=== PATIENT | male | born 1990 | race Caucasian/White ===

== ENCOUNTER 2021-08-06 20:10 | Emergency (ER) | payer BC ==
[~2021-08-06] VITALS: Ht 172.7 cm; Wt 136.1 kg
== END 2021-08-06 22:16 | disposition home or self-care (01) ==
LOC: ER 20:10
DX: B34.9 Viral infection, unspecified (principal); F41.9 Anxiety disorder, unspecified
CPT/HCPCS: 99283

== ENCOUNTER 2021-08-07 18:16 | Emergency (ER) | payer BC ==
[~2021-08-07] VITALS: Ht 172.7 cm; Wt 136.1 kg
[2021-08-07 18:55] LABS: BASOPHILS ABSOLUTE AUTO 0.07 K/mm3 (0.00-0.23); BASOPHILS PERCENT AUTO 1 % (0-2); EOSINOPHILS ABSOLUTE AUTO 0.01 K/mm3 (0.00-0.68); EOSINOPHILS PERCENT AUTO 0 % (0-6); Hematocrit 45.5 % (37.0-53.0); Hemoglobin 15.6 g/dL (13.5-17.5); IMMATURE GRAN ABSOLUTE AUTO 0.04 K/mm3 (0.00-0.10); IMMATURE GRAN PERCENT AUTO 0 % (0-1); LYMPHOCYTES ABSOLUTE AUTO 4.05 K/mm3 (0.84-5.20); LYMPHOCYTES PERCENT AUTO 32 % (21-46); MONOCYTES ABSOLUTE AUTO 0.74 K/mm3 (0.16-1.47); MONOCYTES PERCENT AUTO 6 % (4-13); Mean Corpuscular HGB 30.4 pg (26.0-34.0); Mean Corpuscular HGB Conc 34.3 g/dL (31.5-36.5); Mean Corpuscular Volume 89 fL (80-100); Mean Platelet Volume 10.4 fL (9.1-12.4); NEUTROPHILS ABSOLUTE AUTO 7.64 K/mm3 (1.96-9.15); NEUTROPHILS PERCENT AUTO 61 % (41-73); Platelet Count 315 K/mm3 (150-400); RDW Coefficient Variation 12.2 % (11.7-14.2); RDW Standard Deviation 39.8 fL (35.1-46.3); Red Blood Cell Count 5.13 M/mm3 (4.30-5.90); White Blood Cell Count 12.55 K/mm3 (4.00-11.30)
[2021-08-07 19:26] LABS: Alanine Aminotransfer (ALT/SGP 93 U/L (12-78); Albumin/Globulin Ratio 1.1 (0.8-1.8); Alk Phos 70 U/L (50-136); Anion Gap 8 mmol/L (6-16); Aspartate Aminotrans (AST/SGOT 90 U/L (12-37); Bilirubin, Total 0.5 mg/dL (0.1-1.0); Blood Urea Nitrogen 16 mg/dL (8-24); Bun/Creatinine Ratio 22.5 (12.0-20.0); CO2, Blood 23 mmol/L (21-32); Calcium, Blood 9.2 mg/dL (8.5-10.1); Chloride, Blood 106 mmol/L (98-108); Creatinine, Blood 0.71 mg/dL (0.60-1.20); Globulin, Blood 3.8 g/dL (2.2-4.0); Glomerular Filtration Rate >60 (60-); Glucose, Blood 114 mg/dL (70-99); Sodium, Blood 137 mmol/L (136-145); Total Protein, Blood 7.8 g/dL (6.4-8.2)
[2021-08-07 20:14] LABS: Source, Urine Clean Catch
[2021-08-07 20:17] LABS: Bilirubin, Urine Neg (Neg); Blood, Urine Neg (Neg); Glucose Qualitative, Urine Neg (Neg); Ketones, Urine 2+ (Neg); Leukocyte Esterase, Urine 2+ (Neg); Nitrite, Urine Neg (Neg); Protein, Urine Neg (Neg); Urobilinogen, Urine NORM (Normal)
[2021-08-07 20:20] LABS: Appearance, Urine Clear (Clear); Color, Urine Yellow (P-Yellow)
[2021-08-07 20:39] LABS: Red Blood Cells, Urine Not Seen /hpf (0-2)
[2021-08-07 20:40] LABS: Amorphous Mod (0-Heavy); Bacteria Few /hpf; Squamous Epithelial Cells Not Seen /hpf (Few)
[2021-08-07 23:17] LABS: U Amphetamine Screen Not Detected; U Barbituate Screen Not Detected; U Benzodiazapine Screen Not Detected; U Buprenorphine Screen Not Detected; U Cannabinoids Screen Not Detected; U Cocaine Screen Not Detected; U Methadone Screen Not Detected; U Methamphetamine Screen Not Detected; U Opiates Screen Not Detected; U Oxycodone Screen Not Detected; U Phencyclidine Screen Not Detected; U Propoxyphene Screen Not Detected
[2021-08-07 23:17] LABS: Ethanol (Alcohol), Blood, Med <3 mg/dL
== END 2021-08-07 23:10 | disposition home or self-care (01) ==
LOC: ER 18:16
PROVIDERS: Physician Assistant; Student in an Organized Health Care Education/Training Program
DX: R40.4 Transient alteration of awareness (principal); R00.0 Tachycardia, unspecified; Z87.891 Personal history of nicotine dependence
CPT/HCPCS: 80053; 81001; 85025; 87086; 99283; G0480

== ENCOUNTER → 2021-10-20 | Outpatient (CLI) | payer BC | END | disposition home or self-care (01) | LOC: LAB 09:00 → LAB SHORT 09:00 | DX: R30.0 Dysuria (principal) | CPT/HCPCS: 87077; 87086; 87186 ==

== ENCOUNTER → 2022-03-28 | Outpatient (CLI) | payer BC | END | disposition home or self-care (01) | LOC: LAB SHORT 15:23 → LAB 15:23 | DX: R30.0 Dysuria (principal) | CPT/HCPCS: 87077; 87086; 87186 ==

== ENCOUNTER → 2022-10-18 | Outpatient (CLI) | payer BC ==
[2022-10-18 11:45] LABS: BASOPHILS ABSOLUTE AUTO 0.06 K/mm3 (0.00-0.23); BASOPHILS PERCENT AUTO 1 % (0-2); EOSINOPHILS PERCENT AUTO 0 % (0-6); Hematocrit 43.1 % (37.0-53.0); Hemoglobin 13.9 g/dL (13.5-17.5); IMMATURE GRAN ABSOLUTE AUTO 0.04 K/mm3 (0.00-0.10); IMMATURE GRAN PERCENT AUTO 0 % (0-1); LYMPHOCYTES ABSOLUTE AUTO 2.66 K/mm3 (0.84-5.20); LYMPHOCYTES PERCENT AUTO 24 % (21-46); MONOCYTES PERCENT AUTO 5 % (4-13); Mean Corpuscular HGB 27.3 pg (26.0-34.0); Mean Corpuscular HGB Conc 32.3 g/dL (31.5-36.5); Mean Corpuscular Volume 85 fL (80-100); Mean Platelet Volume 11.7 fL (9.1-12.4); NEUTROPHILS ABSOLUTE AUTO 7.73 K/mm3 (1.96-9.15); NEUTROPHILS PERCENT AUTO 70 % (41-73); Platelet Count 241 K/mm3 (150-400); RDW Coefficient Variation 14.1 % (11.7-14.2); RDW Standard Deviation 43.1 fL (35.1-46.3); White Blood Cell Count 11.09 K/mm3 (4.00-11.30)
[2022-10-18 11:59] LABS: Albumin/Globulin Ratio 1.1 (0.8-1.8); Bilirubin, Total 1.5 mg/dL (0.1-1.0); Bun/Creatinine Ratio 16.7 (12.0-20.0); Creatinine, Blood 0.96 mg/dL (0.60-1.20); Globulin, Blood 3.5 g/dL (2.2-4.0); Potassium, Blood 4.6 mmol/L (3.5-5.5); Total Protein, Blood 7.5 g/dL (6.4-8.2)
== END | disposition home or self-care (01) ==
LOC: LAB SHORT 11:20 → LAB 11:20
PROVIDERS: Nurse Practitioner Family
DX: R06.02 Shortness of breath (principal); R42 Dizziness and giddiness
CPT/HCPCS: 80053; 82550; 84484; 85025

== ENCOUNTER 2022-11-03 10:17 | Observation (INO) | payer BC ==
[~2022-11-03] VITALS: Ht 172.7 cm; Wt 151.4 kg
[2022-11-03 11:23] LABS: BASOPHILS ABSOLUTE AUTO 0.04 K/mm3 (0.00-0.23); BASOPHILS PERCENT AUTO 1 % (0-2); EOSINOPHILS PERCENT AUTO 0 % (0-6); Hematocrit 43.4 % (37.0-53.0); Hemoglobin 13.9 g/dL (13.5-17.5); IMMATURE GRAN ABSOLUTE AUTO 0.02 K/mm3 (0.00-0.10); IMMATURE GRAN PERCENT AUTO 0 % (0-1); LYMPHOCYTES ABSOLUTE AUTO 1.74 K/mm3 (0.84-5.20); LYMPHOCYTES PERCENT AUTO 22 % (21-46); MONOCYTES ABSOLUTE AUTO 0.67 K/mm3 (0.16-1.47); MONOCYTES PERCENT AUTO 8 % (4-13); Mean Corpuscular HGB 27.4 pg (26.0-34.0); Mean Corpuscular Volume 86 fL (80-100); Mean Platelet Volume 10.9 fL (9.1-12.4); NEUTROPHILS ABSOLUTE AUTO 5.48 K/mm3 (1.96-9.15); NEUTROPHILS PERCENT AUTO 69 % (41-73); Platelet Count 204 K/mm3 (150-400); RDW Coefficient Variation 14.9 % (11.7-14.2); RDW Standard Deviation 46.7 fL (35.1-46.3); Red Blood Cell Count 5.07 M/mm3 (4.30-5.90); White Blood Cell Count 7.95 K/mm3 (4.00-11.30)
[2022-11-03 11:38] LABS: Albumin, Blood 3.8 g/dL (3.4-5.0); Albumin/Globulin Ratio 1.2 (0.8-1.8); Bilirubin, Total 1.4 mg/dL (0.1-1.0); Bun/Creatinine Ratio 14.5 (12.0-20.0); Calcium, Blood 9.3 mg/dL (8.5-10.1); Creatinine, Blood 0.97 mg/dL (0.60-1.20); Globulin, Blood 3.3 g/dL (2.2-4.0); Total Protein, Blood 7.1 g/dL (6.4-8.2)
[2022-11-03 13:50] LABS: Magnesium, Blood 1.8 mg/dL (1.6-2.4)
[2022-11-03 13:54] LABS: Thyroid Stimulating Hormone 1.55 uIU/mL (0.360-4.800)
--- NOTE | 2022-11-03 16:36 | NUR ---
eCHOCARDIOGRAM USING 0.60ML OF DEFINITY CONTRAST PERFORMED.
--- NOTE | 2022-11-03 18:32 | NUR ---
PT ARRIVED TO MEDICAL FLOOR AFTER RN RECEIVED REPORT FROM ER NURSE. PT TRANSFER DID NOT NOTIFY RN WHEN PT ARRIVED. PT LEFT IN ROOM W/O STAFF AWARE OF PT'S ARRIVAL. PT IN STABLE CONDITION.
[2022-11-04 07:00] LABS: Magnesium, Blood 1.8 mg/dL (1.6-2.4)
[2022-11-04 07:02] LABS: Bun/Creatinine Ratio 17.6 (12.0-20.0); Calcium, Blood 8.9 mg/dL (8.5-10.1); Creatinine, Blood 0.97 mg/dL (0.60-1.20); Potassium, Blood 3.4 mmol/L (3.5-5.5)
--- NOTE | 2022-11-04 08:28 | NUR ---
SUMMARY PT WITH NO CP TONIGHT AND IMPROVEMENT IN SOB. STILL TACHY, ALTHOUGH RATE IS IMPROVING. HERE THIS AM TO SEE PT.
--- NOTE | 2022-11-05 06:22 | NUR ---
SHIFT SUMMARY Pt on fluid restriction 1800 ml/day. Using urinal to measure output. No c/o chest discomfort or pain t/o shift. Slept well t/o the night. VSS, AOx4, independent in room pleasant and cooperative.
[2022-11-05 06:52] LABS: Albumin, Blood 3.3 g/dL (3.4-5.0); Anion Gap 7 mmol/L (6-16); Blood Urea Nitrogen 16 mg/dL (8-24); Bun/Creatinine Ratio 17.1 (12.0-20.0); CO2, Blood 27 mmol/L (21-32); Chloride, Blood 109 mmol/L (98-108); Creatinine, Blood 0.94 mg/dL (0.60-1.20); Glomerular Filtration Rate 112 (60-); Glucose, Blood 93 mg/dL (70-99); Magnesium, Blood 1.7 mg/dL (1.6-2.4); Phosphorus, Blood 5.1 mg/dL (2.5-4.9); Potassium, Blood 3.2 mmol/L (3.5-5.5); Sodium, Blood 143 mmol/L (136-145)
[2022-11-05] MEDS ORDERED: JARDIANCE10 MG PO (12:24)
[2022-11-05] MEDS ORDERED: METO50ER PO (12:25)
[2022-11-05] MEDS ORDERED: ENTRESTO 24 MG1 EAC3 PO (12:26)
[2022-11-05] MEDS ORDERED: SPIR50 PO (12:27)
[2022-11-05] MEDS ORDERED: SOAANZ20 M1 PO (12:28)
[2022-11-05] MEDS ORDERED: MAGNESIUM OXID500 MG PO (12:29)
[2022-11-05] MEDS ORDERED: POTCHL20ER PO (12:30)
--- NOTE | 2022-11-05 13:04 | NUR ---
PT DISCHARGED FROM THE UNIT. IV REMOVED. DISCHARGE INSTRUCTIONS REIVEWED. INSTRUCTED ON FOLLOW UP APTS. MEICATIONS FAXED TO PHARMACY. PT LEFT UNIT VIA WHEEL CHAIR.
== END 2022-11-05 13:20 | disposition home or self-care (01) ==
LOC: ER 10:17 → MEDS 15:59 → ER 15:59 → ERHOLD 15:59 → MEDS 16:24 → ERHOLD 17:51 → MEDS 11-05 13:20
PROVIDERS: Internal Medicine Cardiovascular Disease; Physician Assistant; Student in an Organized Health Care Education/Training Program; ADMIT Internal Medicine
DX: I50.21 Acute systolic (congestive) heart failure (principal); E87.6 Hypokalemia; E66.01 Morbid (severe) obesity due to excess calories; R73.03 Prediabetes; R00.0 Tachycardia, unspecified; Z87.891 Personal history of nicotine dependence
CPT/HCPCS: 36415; 71046; 80048; 80053; 80069; 83036; 83690; 83735; 83880; 84443; 85025; 93005; 93010; 94760; 96361; 96374-59; 99285-25; A9270; C8929; J1650; J1940; J3475; J7030; Q9957

== ENCOUNTER → 2023-07-23 | Outpatient (CLI) | payer BC ==
[~2023-07-23] MED LIST: ENTRESTO 24 MG1 EAC3 PO; JARDIANCE10 MG PO; MAGNESIUM OXID500 MG PO; METO50ER PO; POTCHL20ER PO; SOAANZ20 M1 PO; SPIR50 PO
== END ==
LOC: LAB 10:18 → LAB SHORT 10:18
DX: N39.0 Urinary tract infection, site not specified (principal)
CPT/HCPCS: 87086

== ENCOUNTER → 2023-08-27 | Outpatient (CLI) | payer BC | LOC: LAB 10:52 → LAB SHORT 10:52 | DX: R30.0 Dysuria (principal) | CPT/HCPCS: 87102 ==